=== PATIENT | male | born 1945 | race Hispanic/Latino ===

== ENCOUNTER 2018-08-18 05:30 | Observation (INO) | payer OTHER ==
[2018-08-17 12:33] VITALS: BP 159/81
[2018-08-17 12:41] LABS: HEMATOCRIT 47.4 % (42-54); MEAN CORPUSCULAR HEMOGLOBIN 30.8 pg (27.0-33.0); MEAN CORPUSCULAR HGB CONC 33.6 g/dL (32.0-36.0); MEAN CORPUSCULAR VOLUME 91.8 fL (79-99); PLATELET COUNT (AUTO) 199 K/uL (130-400); RED BLOOD CELL COUNT(AUTO) 5.16 MIL/uL (4.50-6.20); RED CELL DISTRIBUTION WIDTH 14.7 % (11.0-15.5)
[2018-08-17 12:47] LABS: APPEARANCE,URINE Clear (CLEAR); BILIRUBIN,URINE Negative (NEGATIVE); COLOR,URINE Yellow (YELLOW); GLUCOSE, URINE (UA) >=1000 mg/dL (NEGATIVE); KETONES,URINE Trace mg/dL (NEGATIVE); LEUKOCYTE ESTERASE ,URINE Negative (NEGATIVE); NITRATE,URINE Negative (NEGATIVE); OCCULT BLOOD,URINE Trace (NEGATIVE); PROTEIN,URINE POS 1+ (NEGATIVE)
[2018-08-17 12:51] LABS: CREATININE 1.7 mg/dL (0.5-1.5); POTASSIUM 4.7 mmol/L (3.5-5.1)
[2018-08-17 12:55] LABS: INR 0.89 (0.85-1.15); PARTIAL THROMBOPLASTIN TIME 29.6 SEC (26.3-35.5); PROTHROMBIN TIME 9.4 SEC (9.6-11.6)
[2018-08-17 13:08] LABS: BACTERIA,URINE None Seen /HPF (None Seen); MUCUS,URINE Rare LPF (None Seen); RBC,URINE 0-1 /HPF (0-1); SQUAMOUS EPITHELIAL CELL,UR None Seen /HPF (0-2); WBC,URINE None Seen /HPF (0-1)
[~2018-08-18] VITALS: Ht 165.1 cm; Wt 80.7 kg
[2018-08-18] VITALS (24 sets, daily range): BP systolic 128–157; BP diastolic 73–89
[2018-08-18] MEDS: CEFAZOLIN SODIUM 1 GM VIAL IVP SCH ×4 (05:00→23:12)
[~2018-08-18 05:30] MED LIST: CLON0.3T PO; INSU100V33 SQ; PIOG45TA64 PO; SIMV20TA6 PO
[2018-08-18] MEDS ORDERED: SODIUM CHLORIDE 0.9% 1000ML 1,000 ML IV ONE (05:49)
[2018-08-18] MEDS: MITOMYCIN 40 MG VIAL SCH ×2 (06:00→07:33)
[2018-08-18] MEDS ORDERED: LACTATED RINGERS 1000ML 1,000 ML IV SCH (06:00)
[2018-08-18] MEDS ORDERED: NEOSTIGMINE 5MG/5ML SYR IV ONE (06:53)
[2018-08-18] MEDS ORDERED: PROPOFOL 10 MG/ML 20ML VIAL IV ONE (06:53)
[2018-08-18] MEDS ORDERED: GLYCOPYRROLATE 1 MG/5 ML SYRINGE ONE (06:53)
[2018-08-18] MEDS ORDERED: DEXAMETHASONE SOD PHOSPHATE 10MG/ML 1ML VIAL ONE (06:53)
[2018-08-18] MEDS ORDERED: LIDOCAINE PF 2% 5ML ABBOJECT ONE ×2 (06:53→06:54)
[2018-08-18] MEDS ORDERED: FENTANYL CITRATE PF 50 MCG/1 ML 2ML VIAL ONE (06:54)
[2018-08-18] MEDS ORDERED: ROCURONIUM BROMIDE 10MG/1ML 5ML VL ONE (06:54)
[2018-08-18] MEDS ORDERED: IOHEXOL-350 50ML VIAL IV ONE (06:56)
[2018-08-18] MEDS ORDERED: ROCURONIUM 10MG/1ML SYR 10 MG/ML ML ONE ×2 (06:58)
[2018-08-18] MEDS: LACTATED RINGERS 1000ML 1,000 ML IV SCH ×2 (11:00→19:07)
[2018-08-18] MEDS ORDERED: MEPERIDINE HCL/PF 25 MG/0.5 ML AMPUL IM PRN (11:00)
[2018-08-18] MEDS ORDERED: ACETAMINOPHEN 325 MG TAB PO PRN (11:00)
[2018-08-18] MEDS ORDERED: ONDANSETRON HCL MDV 20ML 2 MG/ML VIAL IVP PRN (11:00)
[2018-08-18] MEDS ORDERED: ACETAMINOPHEN-CODEINE 300/30MG TAB PO PRN (11:00)
[2018-08-18] MEDS ORDERED: INSULIN HUMULIN 70/30 100 UNIT/ML 3ML SQ SCH (17:00)
[2018-08-18] MEDS ORDERED: SIMVASTATIN 20 MG TABLET PO SCH (21:00)
[2018-08-18] MEDS: CLONIDINE HCL 0.3 MG TABLET PO SCH (21:33)
[2018-08-19] VITALS: BP 136/72
[2018-08-19 04:00] VITALS: BP 117/68
[2018-08-19] MEDS: CEFAZOLIN SODIUM 1 GM VIAL IVP SCH (06:17)
[2018-08-19] MEDS: LACTATED RINGERS 1000ML 1,000 ML IV SCH (06:17)
[2018-08-19 07:31] VITALS: BP 134/77
[2018-08-19] MEDS ORDERED: PIOGLITAZONE HCL 45 MG TAB PO SCH (09:00)
[2018-08-19] MEDS ORDERED: INSULIN HUMULIN 70/30 100 UNIT/ML 3ML SQ SCH (09:00)
[2018-08-19 09:40] LABS: CREATININE 1.5 mg/dL (0.5-1.5)
[2018-08-19] MEDS: CLONIDINE HCL 0.3 MG TABLET PO SCH (09:42)
[2018-08-19 11:46] VITALS: BP 134/77
== END 2018-08-19 13:15 | disposition home or self-care (01) ==
LOC: DAH 05:30 → 4CH 05:31 → DAH 05:31
PROVIDERS: ADMIT Urology; ATTEND Urology
DX: C67.9 Malignant neoplasm of bladder, unspecified (principal); C64.9 Malignant neoplasm of unspecified kidney, except renal pelvis; E11.65 Type 2 diabetes mellitus with hyperglycemia
CPT/HCPCS: 36415 ×2; 52204; 71046; 74420; 80048; 81001; 82565; 82948 ×7; 84520; 85027; 85610; 85730; 87088; 88104; 88305 ×2; 93005; 96372 ×2; 96374; 96375; 96376 ×2; A4218 ×2; A4354; A4358; A4600; C1758 ×2; C1769; G0378 ×32; J0690 ×4; J1100; J1815 ×2; J2001 ×2; J2704; J2710; J3010; J3490 ×2; J7030; J7120 ×3; J9280 ×2; Q9967